=== PATIENT | male | born 1995 | race Two or more races ===

== ENCOUNTER 2025-05-11 16:46 | Emergency (ER) | payer MEDICAID ==
[~2025-05-11] VITALS: Ht 154.9 cm; Wt 66.6 kg
[2025-05-11 16:48] VITALS: BP 118/79; PULSE 105; RESP 18; TEMP 98; O2SAT 97
--- NOTE | 2025-05-11 17:40 | ED.PDOC ---
Psychiatric HPI Comments 30 y/o M, brought in by ED security, with PMHx of polysubstance abuse, depression, and schizophrenia presents to the ED for CC of mental health crisis. Per ED security, patient was found to be wandering facility and was brought in for evaluation. Patient reports, recent meth usage approximately x3days ago. At this time patient is unable to answer questions appropriately without excessive word usage; patient has word salad. Patient denies suicidal ideation, homicidal ideation, auditory or visual hallucinations. No other symptoms or modifiers present at this time. Chief Complaint: Mental Health Time Seen by MD: 17:30 Reviewed Notes: Nurses Notes, Medications, Allergies Information Source: Patient Mode of Arrival: Ambulatory Severity: Unable to Care for Self Severity of Pain: None Severity of Mental Status: Moderate Severity of Symptoms: Moderate Timing: Minutes Duration: Since onset Presents with: Bizarre Behavior Ingestion: Drug(s) Ingested Circumstance: None Current substance abuse: Amphetamines Stressors: Homeless History of: Schizophrenia Associated signs and symptoms: None Past Medical History PAST MEDICAL HISTORY: Depression, Schizophrenia Surgical History: Denies all surgeries Family History Family History: Unknown Social History Smoker: Unknown Alcohol: Unknown Drugs: Marijuana, Methamphetamine Lives In: Unknown Constitutional: denies: chills, diaphoresis, fatigue, fever, malaise, sweats, weakness, others EENTM: denies: blurred vision, double vision, ear bleeding, ear discharge, ear drainage, ear pain, ear ringing, eye pain, eye redness, hearing loss, mouth pain, mouth swelling, nasal discharge, nose bleeding, nose congestion, nose pain, photophobia, tearing, throat pain, throat swelling, voice changes, others Respiratory: denies: cough, hemoptysis, orthopnea, SOB at rest, shortness of breath, SOB with excertion, stridor, wheezing, others Cardiovascular: denies: chest pain, dizzy spells, diaphoresis, Dyspnea on ex ertion, edema, irregular heart beat, left arm pain, lightheadedness, palpitations, PND, syncope, others Gastrointestinal: denies: abdomen distended, abdominal pain, blood streaked bowels, constipated, diarrhea, dysphagia, difficulty swallowing, hematemesis, melena, nausea, poor appetite, poor fluid intake, rectal bleeding, rectal pain, vomiting, others Genitourinary: denies: burning, dysuria, flank pain, frequency, hematuria, incontinence, penile discharge, penile sore, pain, testicle pain, testicle swelling, urgency, others Neurological: denies: dizziness, fainting, headache, left sided numbness, left sided weakness, numbness, paresthesia, pre-existing deficit, right sided numbness, right sided weakness, seizure, speech problems, tingling, tremors, weakness, others Musculoskeletal: denies: back pain, gout, joint pain, joint swelling, muscle pain, muscle stiffness, neck pain, others Integumetry: denies: bruises, change in color, change in hair/nails, dryness, laceration, lesions, lumps, rash, wounds, others Allergic/Immunocompromised: denies: Difficulty Healing, Frequent Infections, Hives, Itching, others Hematologic/Lymphatic: denies: anemia, blood clots, easy bleeding, easy bruising, swollen glands, others Endocrine: denies: excessive hunger, excessive sweating, excessive thirst, excessive urination, flushing, intolerance to cold, intolerance to heat, unexplained weight gain, unexplained weight loss, others Psychiatric: reports: schizophrenia; denies: anxiety, bipolar disorder, depression, hopeless, panic disorder, sleepless, suicidal, others All Other Systems: Reviewed and Negative Physical Exam General Appearance: No Apparent Distress, Normal HEENT: Normal ENT Inspection, Pharynx Normal Neck: Full Range of Motion, Non-Tender, Normal, Normal Inspection Respiratory: Chest Non-Tender, Lungs Clear, No Accessory Muscle Use, No Respiratory Distress, Normal Breath Sounds Cardiovascular: No Edema, No Murmur, No Gallop, Normal Peripheral Pulses, Regular Rate/Rhythm Breast Exam: Deferred Gastrointestinal: No Organomegaly, Non Tender, No Pulsatile Mass, Normal Bowel Sounds, Soft Genitalia: Deferred Pelvic: Deferred Rectal: Deferred Extremities: No calf tenderness, Normal capillary refill, Normal inspection, Normal range of motion, Non-tender, No pedal edema Musculoskeletal : Apperance: Normal Neurologic: sample card maker II-XII nml as Tested, No Motor Deficits, Normal Affect, Normal Mood, No Sensory Deficits Cerebellar Function: Normal Reflexes: Normal Skin: Dry, Normal Color, Warm Lymphatic: No Adenopathy Was a procedure done? Was a procedure done?: No Psych Differential Dx OD Differential Dx: Schizophrenia, Substance Abuse X-Ray, Labs, Meds, VS Vital Signs Date Time Temp Pulse Resp B/P (MAP) Pulse Ox O2 Delivery O2 Flow Rate FiO2 05/11/25 16:48 98.0 105 18 118/79 97 98.0 Lab Test 05/11/25 19:00 Range/Units White Blood Count 6.7 4.4-10.8 10^3/uL Red Blood Count 5.10 4.5-5.90 10^6/uL Hemoglobin 15.1 13.5-17.5 g/dL Hematocrit 43.0 41.0-53.0 % Mean Corpuscular Volume 84.4 80.0-100.0 fL Mean Corpuscular Hemoglobin 29.6 28.0-32.0 pg Mean Corpuscular Hemoglobin Concent 35.1 32.0-36.0 g/dL Red Cell Distribution Width 13.6 11.8-14.3 % Platelet Count 298 140-450 10^3/uL Mean Platelet Volume 7.5 6.9-10.8 fL Neutrophils (%) (Auto) 64.9 37.0-80.0 % Lymphocytes (%) (Auto) 25.1 10.0-50.0 % Monocytes (%) (Auto) 8.4 0.0-12.0 % Eosinophils (%) (Auto) 1.1 0.0-7.0 % Basophils (%) (Auto) 0.5 0.0-2.0 % Neutrophils # (Auto) 4.4 1.6-8.6 10 ^3/uL Lymphocytes # (Auto) 1.7 0.4-5.4 10 ^3/uL Monocytes # (Auto) 0.6 0-1.3 10 ^3/uL Eosinophils # (Auto) 0.1 0-0.8 10 ^3/uL Basophils # (Auto) 0 0-0.2 10 ^3/uL Nucleated Red Blood Cells 0.1 % Sodium Level 135 L 136-145 mmol/L Potassium Level 4.1 3.5-5.1 mmol/L Chloride Level 98 98-107 mmol/L Carbon Dioxide Level 27 20-31 mmol/L Anion Gap 10 5-15 Blood Urea Nitrogen 26 H 9-23 mg/dL Creatinine 1.14 0.700-1.30 mg/dL Glomerular Filtration Rate Calc 88 >90 mL/min BUN/Creatinine Ratio 22.8 H 10.0-20.0 Serum Glucose 113 H 74-106 mg/dL Calcium Level 10.0 8.7-10.4 mg/dL Total Bilirubin 2.2 H 0.2-1.0 mg/dL Aspartate Amino Transferase (AST) 38 13-40 U/L Alanine Aminotransferase (ALT) 26 7-40 U/L Alkaline Phosphatase 94 46-116 U/L Total Protein 8.5 H 5.7-8.2 g/dL Albumin 5.5 H 3.2-4.8 g/dL X-Ray, Labs, Meds, VS Comment Patient be placed under ED observation, we are pending blood alcohol level and drug screen Spoke with Dr. Villafuerte, he does not see patient at any risk. Patient will be reassessed in 4-6 hours, if we are able to obtain a blood alcohol and patient is still acting in similar fashion a may be due to schizophrenia If patient's status changes call back to Dr. Villafuerte will be made Time of 1ST Reevaluation: 18:00 Reevaluation 1ST: Unchanged Patient Education/Counseling: Diagnosis, Treatment Family Education/Counseling: No Family Present Assigned to Dr. coats Change of Shift?: Yes Departure 1 Departure Time of Disposition: 03:19 Impression: Primary Impression: Schizophrenia Qualified Codes: F20.0 - Paranoid schizophrenia Disposition: 30 STILL A PATIENT Condition: Stable Discharged With: Self Critical Care Note Critical Care Time?: No Stability Stability form required: No Heart Score Heart Score: Heart Score Response (Comments) Value History N/A 0 EKG N/A 0 Age N/A 0 Risk Factors N/A 0 Troponin N/A 0 Total 0 I personally scribed for GISELLE DESAI ([email or web address]) on 05/11/25 at 17:40. Electronically submitted by Carrie Garcia ([email or web address]). GISELLE DESAI May 11, 2025 17:40
[2025-05-11 19:31] LABS: Hematocrit 43.0 % (41.0-53.0); Hemoglobin 15.1 g/dL (13.5-17.5); Mean Corpuscular Hemoglobin 29.6 pg (28.0-32.0); Mean Corpuscular Volume 84.4 fL (80.0-100.0); Nucleated Red Blood Cells % 0.1 %
[2025-05-11 19:36] LABS: Alanine Aminotransferase 26 U/L (7-40); Alkaline Phosphatase 94 U/L (46-116); Anion Gap 10 (5-15); BUN/Creatinine Ratio 22.8 (10.0-20.0); Calcium 10.0 mg/dL (8.7-10.4); Carbon Dioxide 27 mmol/L (20-31); Chloride 98 mmol/L (98-107); Potassium 4.1 mmol/L (3.5-5.1)
[2025-05-11 19:48] LABS: Albumin 5.5 g/dL (3.2-4.8); Bilirubin, Total 2.2 mg/dL (0.2-1.0); Blood Urea Nitrogen 26 mg/dL (9-23); Glucose 113 mg/dL (74-106); Sodium 135 mmol/L (136-145); Total Protein 8.5 g/dL (5.7-8.2)
--- NOTE | 2025-05-12 01:44 | DVHINCON2 ---
Date of Service if different f: May 12, 2025 Time of Service: 01:22 Consultation ([facility]) Consulting Physician: LORETO ELLIS MD Labs Laboratory Tests Test 05/11/25 19:00 White Blood Count 6.7 10^3/uL (4.4-10.8) Red Blood Count 5.10 10^6/uL (4.5-5.90) Hemoglobin 15.1 g/dL (13.5-17.5) Hematocrit 43.0 % (41.0-53.0) Mean Corpuscular Volume 84.4 fL (80.0-100.0) Mean Corpuscular Hemoglobin 29.6 pg (28.0-32.0) Mean Corpuscular Hemoglobin Concent 35.1 g/dL (32.0-36.0) Red Cell Distribution Width 13.6 % (11.8-14.3) Platelet Count 298 10^3/uL (140-450) Mean Platelet Volume 7.5 fL (6.9-10.8) Neutrophils (%) (Auto) 64.9 % (37.0-80.0) Lymphocytes (%) (Auto) 25.1 % (10.0-50.0) Monocytes (%) (Auto) 8.4 % (0.0-12.0) Eosinophils (%) (Auto) 1.1 % (0.0-7.0) Basophils (%) (Auto) 0.5 % (0.0-2.0) Neutrophils # (Auto) 4.4 10 ^3/uL (1.6-8.6) Lymphocytes # (Auto) 1.7 10 ^3/uL (0.4-5.4) Monocytes # (Auto) 0.6 10 ^3/uL (0-1.3) Eosinophils # (Auto) 0.1 10 ^3/uL (0-0.8) Basophils # (Auto) 0 10 ^3/uL (0-0.2) Nucleated Red Blood Cells 0.1 % Sodium Level 135 mmol/L (136-145) Potassium Level 4.1 mmol/L (3.5-5.1) Chloride Level 98 mmol/L (98-107) Carbon Dioxide Level 27 mmol/L (20-31) Anion Gap 10 (5-15) Blood Urea Nitrogen 26 mg/dL (9-23) Creatinine 1.14 mg/dL (0.700-1.30) Glomerular Filtration Rate Calc 88 mL/min (>90) BUN/Creatinine Ratio 22.8 (10.0-20.0) Serum Glucose 113 mg/dL (74-106) Calcium Level 10.0 mg/dL (8.7-10.4) Total Bilirubin 2.2 mg/dL (0.2-1.0) Aspartate Amino Transf (AST/SGOT) 38 U/L (13-40) Alanine Aminotransferase (ALT/SGPT) 26 U/L (7-40) Alkaline Phosphatase 94 U/L (46-116) Total Protein 8.5 g/dL (5.7-8.2) Albumin 5.5 g/dL (3.2-4.8) Appearance: Stated age Psychomotor activity: Lethargic Behavioral: Cooperative Eye contact: Appropriate Speech: WNL Affect: Mood Congruent Mood: Euthymic Thought processes: Linear/Goal-directed Thought content: WNL Suicidal ideations: Absent Homicidal ideations: Absent Orientation: Person, Place, Confused Memory intact: Recent Intellect: Average Abstractability: Marginal Concentration: Limited Attention: Limited Judgement: Poor Insight: Poor Vitals Vital Signs Date Time Temp Pulse Resp B/P (MAP) Pulse Ox O2 Delivery O2 Flow Rate FiO2 05/11/25 16:48 98.0 105 18 118/79 97 98.0 Treatment plan discussed: With staff Medication adjusted: No Labs ordered: No Psychotherapy provided: No Type: Voluntary History of Present Illness Reason for Consult : psychiatric evaluation PER ED PHYSICIAN NOTE: 30 y/o M, brought in by ED security, with PMHx of polysubstance abuse, depression, and schizophrenia presents to the ED for CC of mental health crisis. Per ED security, patient was found to be wandering facility and was brought in for evaluation. Patient reports, recent meth usage approximately x3days ago. At this time patient is unable to answer questions appropriately without excessive word usage; patient has word salad. Patient denies suicidal ideation, homicidal ideation, auditory or visual hallucinations. No other symptoms or modifiers present at this time. PSYCHIATRIST HPI: The patient was seen and evaluated at [facility] via telepsychiatry platform. 30 yr old male reported that he has used meth and drank a lot of alcohol earlier today and currently feels drunk.He stated he has been diagnosed with schizophrenia in the past but also said he drinks daily and uses meth frequently and reported drinking a lot today and using meth this morning. He denied having depression or anxiety. He denied having suicidal ideation, plan or intent.He denied homicidal ideation, plan or intent. He denied having auditory or visual hallucinations. Past Psychiatric History : Diagnosed with schizophrenia. No past hospitalizations. No past suicide attempts. Past Medical History: None Current Medications: none NKDA Substance use: Drinks alcohol daily, about 32 ounces of vodka. Smokes MJ daily. Uses meth frequently. Last used a couple days ago. Denied use of other substance use. Social History : Lives in house with parents. Never , no children. Graduated HS. Diagnosis: METH USE DISORDER; ALCOHOL USE DISORDER; R/O SUBSTANCE INTOXICATION Formulation: This 30 yr old male appears to be intoxicated on alcohol and meth. He has a history of schizophrenia, but due to probable intoxication, he does not make a lot of sense. I would recommend observing in the ED overnight and then reevaluating tomorrow when he is more coherent. Plan: 1. Recommend monitoring and observing in ED overnight to allow him to metabolize substances and reassees in morning. 2. Legal-Voluntary. 3. Medication:No medications indicated at this time. Recommend monitoring for alcohol withdrawal. 4. Contact psychiatry if further evaluation or follow up is desired. 5. case discussed with ED HEALTH THERAPIST, Angelo Hannon. LORETO ELLIS MD May 12, 2025 01:24
== END 2025-05-12 08:34 | disposition left against medical advice (07) ==
LOC: ER 16:52
DX: F20.9 Schizophrenia, unspecified (principal); F15.10 Other stimulant abuse, uncomplicated; F12.90 Cannabis use, unspecified, uncomplicated; F32.A Depression, unspecified; Z59.00 Homelessness unspecified
CPT/HCPCS: 36415; 80053; 80320; 85025

== ENCOUNTER 2025-07-23 23:02 | Emergency (ER) | payer MEDICAID ==
[~2025-07-23] VITALS: Ht 180.3 cm; Wt 67.5 kg
--- NOTE | 2025-07-23 23:52 | ED.PDOC ---
Psychiatric HPI Comments 30 year old male came to ER for mental health issues. Patient is homeless, has history of schizophrenia, depression and polysubstance abuse. Is a poor informant, does not answer questions appropriately. States he is here because "outpatient is not open" he is having problems with his roommate. He is denying suicidal ideation. REVIEW OF SYSTEMS: General: No fever, no chills, or fatigue HEENT: No sore throat, no earache, no congestion, no neck pain. Cardiac: No chest pain. No palpitations. No near syncope Lungs: No shortness of breath, no cough. GI: No nausea, no vomiting, no diarrhea, no constipation, no abdominal pain : No dysuria, frequency, or urgency. No hematuria. Musculoskeletal: No joint pain , no joint swelling, no extremity edema. Skin: No rash, no itching. Neuro: No headache, no dizziness, no weakness Psych: (+) schizophrenia, (+) depression PHYSICAL EXAM: General: Awake, alert and oriented. No acute distress. Skin: Skin in warm, dry and intact without rashes or lesions. HEENT: The head is normocephalic and atraumatic. Conjunctivae are clear without exudates or hemorrhage. Sclera is non-icteric. Neck: Normal range of motion. No JVD. Cardiac: Regular rate Respiratory: No signs of respiratory distress. No Stridor. Extremities: Upper and lower extremities are atraumatic in appearance without deformity. Neurological: The patient is awake, alert and oriented to person, place, and time with normal speech. Speech is clear. There is no facial asymmetry. Psychiatric: PATIENT IS SOFT SPOKEN, WITHDRAWN, TANGENTIAL SPEECH. HE IS DENYING SUICIDAL IDEATION. Chief Complaint: Mental Health Time Seen by MD: 23:52 Reviewed Notes: Nurses Notes Information Source: Patient Mode of Arrival: Ambulatory Severity: Unable to Care for Self, Unable to Control Self Past Medical History PAST MEDICAL HISTORY: Depression, Schizophrenia Surgical History: Denies all surgeries Family History Family History: Reviewed,noncontributory to illness Social History Smoker: Unknown Alcohol: Unknown Drugs: Marijuana, Methamphetamine Lives In: Homeless Was a procedure done? Was a procedure done?: No Psych Differential Dx Psych. Differential Dx: Anxiety, Depression, Schizoprenia, Other OD Differential Dx: Schizophrenia, Substance Abuse X-Ray, Labs, Meds, VS Vital Signs Date Time Temp Pulse Resp B/P (MAP) Pulse Ox O2 Delivery O2 Flow Rate FiO2 07/23/25 23:08 96.9 66 18 111/71 97 96.9 Lab Test 07/23/25 23:51 Range/Units White Blood Count 6.9 4.4-10.8 10^3/uL Red Blood Count 4.25 L 4.5-5.90 10^6/uL Hemoglobin 12.6 L 13.5-17.5 g/dL Hematocrit 37.6 L 41.0-53.0 % Mean Corpuscular Volume 88.3 80.0-100.0 fL Mean Corpuscular Hemoglobin 29.6 28.0-32.0 pg Mean Corpuscular Hemoglobin Concent 33.5 32.0-36.0 g/dL Red Cell Distribution Width 14.2 11.8-14.3 % Platelet Count 298 140-450 10^3/uL Mean Platelet Volume 6.8 L 6.9-10.8 fL Neutrophils (%) (Auto) 48.2 37.0-80.0 % Lymphocytes (%) (Auto) 40.3 10.0-50.0 % Monocytes (%) (Auto) 5.7 0.0-12.0 % Eosinophils (%) (Auto) 3.7 0.0-7.0 % Basophils (%) (Auto) 2.1 H 0.0-2.0 % Neutrophils # (Auto) 3.3 1.6-8.6 10 ^3/uL Lymphocytes # (Auto) 2.8 0.4-5.4 10 ^3/uL Monocytes # (Auto) 0.4 0-1.3 10 ^3/uL Eosinophils # (Auto) 0.3 0-0.8 10 ^3/uL Basophils # (Auto) 0.1 0-0.2 10 ^3/uL Nucleated Red Blood Cells 0.1 % Sodium Level 143 136-145 mmol/L Potassium Level 3.3 L 3.5-5.1 mmol/L Chloride Level 106 98-107 mmol/L Carbon Dioxide Level 27 20-31 mmol/L Anion Gap 10 5-15 Blood Urea Nitrogen 13 9-23 mg/dL Creatinine 0.91 0.700-1.30 mg/dL Glomerular Filtration Rate Calc 116 >90 mL/min BUN/Creatinine Ratio 14.3 10.0-20.0 Serum Glucose 89 74-106 mg/dL Calcium Level 9.3 8.7-10.4 mg/dL Plasma/Serum Blood Alcohol < 3.0 <10 mg/dL Time of 1ST Reevaluation: 23:46 Reevaluation 1ST: Unchanged Patient Education/Counseling: Need For Follow Up Family Education/Counseling: No Family Present Departure 1 Departure Time of Disposition: 06:00 Impression: Primary Impression: Psychotic disorder Disposition: 30 STILL A PATIENT Condition: Stable Comments 30-year-old male with psychosis. Patient was medically cleared. Evaluated by Psychiatry. Voluntary admission to psychiatric facility in the morning. Signed out to Dr. Monroe at 0600. Critical Care Note Critical Care Time?: No Stability Stability form required: No I personally scribed for TORSTEN COLUNGA MD ([email or web address]) on 07/23/25 at 23:52. Electronically submitted by Levi Ballard ([email or web address]). I personally scribed for TORSTEN COLUNGA MD ([email or web address]) on 07/23/25 at 23:52. Electronically submitted by Levi Ballard ([email or web address]). TORSTEN COLUNGA MD Jul 23, 2025 23:52
[2025-07-24] LABS: Hematocrit 37.6 % (41.0-53.0); Hemoglobin 12.6 g/dL (13.5-17.5); Mean Corpuscular Hemoglobin 29.6 pg (28.0-32.0); Mean Corpuscular Volume 88.3 fL (80.0-100.0); Nucleated Red Blood Cells % 0.1 %
[2025-07-24 00:05] LABS: Chloride 106 mmol/L (98-107); Sodium 143 mmol/L (136-145)
[2025-07-24 00:06] LABS: Anion Gap 10 (5-15); Calcium 9.3 mg/dL (8.7-10.4); Carbon Dioxide 27 mmol/L (20-31)
[2025-07-24 00:11] LABS: BUN/Creatinine Ratio 14.3 (10.0-20.0); Blood Urea Nitrogen 13 mg/dL (9-23); Glucose 89 mg/dL (74-106)
[2025-07-24 00:21] LABS: Potassium 3.3 mmol/L (3.5-5.1)
--- NOTE | 2025-07-24 04:00 | DVHINCON2 ---
Date of Service if different f: Jul 24, 2025 Time of Service: 03:59 Consult Consult Note PSYCHIATRY ED NEW CONSULT HPI: 30 yo M pt with PPH of psychosis (possibly 2/2 meth use) and ETOH/meth dependency and PMH of seizure disorder presents to ED for safety, psychiatric stabilization, and possible med initiation/optimization in setting of ongoing med noncompliance, AH, and anxiety. Psychiatry consulted for safety evaluation and recommendations in context of current presentation. Of note, pt w/ freq ED visits for similar cc/presentation Per pt, reports over past several days/weeks experiencing some depressed mood, fatigue, restlessness, irritable, "jittery", CAH to hurt self, poor appetite, and unspecified anxiety symptoms. Denies SI/HI/VH/paranoia/catatonia, etc. No overt manic, MDD, cognitive, dissociative phenomena, panic, OCD, PTSD, or somatic symptoms noted Pt currently does have active outpt MH services established at this time (psychiatry only) however admits to recent missed f/u appts. Currently rx'd Abilify 10 mg qd but noncompliant for past several weeks, possibly longer, previously rx'd olanzapine, risperdal, quetiapine, long hx of med noncompliance noted Admits to ETOH (DOC) and meth use - last used several days ago, does have moderate hx of THC/ETOH/meth dependency, never IVDU Never , no children, [facility]/hx of homelessness, unemployed, HS grad, some/limited support system noted (immediate family) Unknown trauma hx. Denies FH of psych hospitalizations, suicide attempts, or completed suicides No acute medical/chronic pain issues although hx of seizures, last seizure several months ago, on keppra 500 mg bid. No recent head injuries, NKDA Some hx of SI/remote SIB via cutting but none recently, several prior psych hospitalizations/5150 holds in context of SI/homelessness, last admission couple of weeks ago at [facility]. Denies history of violence, unprovoked aggression, or assaultive behaviors. Denies any legal problems. Does not have access to firearms MSE: General Appearance/Behavior: Alert/partially awake; appears stated age, fair grooming and hygiene; calm and cooperative, fair eye contact, no PMA/PMR Speech: coherent, rrr Thought Process: linear, logical, concrete, appears goal-directed Thought Content: Abnormal Thoughts and Perceptions: denies dissociative symptoms Homicidality / Violent Thoughts: adamantly denies HI Suicidality: denies SI Hallucinations: +AH Delusions: denies paranoia, persecutory, or grandiose delusions Obsessions /compulsions: None Judgment and Insight: fair/fair to limited Mood & Affect: "anxious" with mood-congruent, bit restricted/ appropriate Orientation: oriented to person, place, time Attention/Concentration: appears intact Cognition: grossly intact Assessment: 30 yo M pt with PPH of psychosis (possibly 2/2 meth use) and ETOH/meth dependency and PMH of seizure disorder presents to ED for safety, psychiatric stabilization, and possible med initiation/optimization in setting of ongoing med noncompliance, AH, and anxiety. Of note, pt w/ freq ED visits for similar cc/presentation No overt manic, psychotic, MDD, cognitive, dissociative phenomena, panic, OCD, PTSD, or somatic symptoms noted Not compliant on psychotropics and recent METH use maybe contributing to current symptoms Pt medically cleared in ED Of note, pt w/hx of seizure d/o, last seizure several months ago, on keppra 500 mg bid Acute safety risk is low but seeks inpatient psychiatric admission for safety, psychiatric stabilization, and possible medication initiation/optimization. Pt willing to transfer to inpt psych facility voluntarily. Does NOT meet 5150 criteria Primary Diagnosis: Psychotic disorder unspecified. ETOH/meth use disorder, moderate. R/o meth induced psychotic disorder Recommend VOL transfer to inpt psych facility for higher level of care 1:1 sitter is NOT recommended Recommend restarting of current outpt med - abilify 10 mg qd (if not in formulary, consider Risperdal 2 mg po qd) Defer any psychotropic med changes to accepting inpt psych facility - may benefit from BOOTH initiation in setting of long med noncompliance hx to PO meds Risks/benefits/alternative treatments discussed, informed consent provided by pt If patient later refuses voluntary hospitalization/ requests to be discharged from ED prior to transfer, pt can be [facility] psych reassessment or 5150 evaluation Pt verbalized understanding and is receptive to above tx plan This case was discussed with ED nurse/provider and all parties in agreement with above tx plan Enrico White MD Plan discussed with: Patient ENRICO WHITE MD Jul 24, 2025 04:00
[2025-07-24 08:00] VITALS: PULSE 63; RESP 18; O2SAT 98
[2025-07-24] MEDS: risperiDONE 1 MG TAB PO ONE (08:30)
[2025-07-25 10:00] VITALS: BP 119/76; PULSE 76; RESP 16; TEMP 97.7; O2SAT 100
== END 2025-07-25 10:32 | disposition short-term general hospital (02) ==
LOC: ER 23:04
DX: F29 Unspecified psychosis not due to a substance or known physiological condition (principal); F32.A Depression, unspecified; F20.9 Schizophrenia, unspecified; F17.200 Nicotine dependence, unspecified, uncomplicated; Z59.00 Homelessness unspecified; Z79.899 Other long term (current) drug therapy
CPT/HCPCS: 36415; 80048; 80320; 85025